=== PATIENT | male | born 1985 | race Caucasian/White ===

== ENCOUNTER 2018-08-19 21:10 | Emergency (ER) | payer OTHER ==
[~2018-08-19] VITALS: Ht 172.7 cm; Wt 83.9 kg
[~2018-08-19 21:10] MED LIST: ACET325 PO; BACI500TO BOTHEYES; CEPH500 PO; Colace100 MG PO; FAMO20 PO; FENT100TP TOP; FERSU90EL PO; Hydrochlorothia25 MG PO; MELA3 PO; MEROPENEM1000 MG IV; OXYC5 PO; RXHYDACE PO; SULTRIDS PO; TAMS.4ER PO
[2018-08-19] MEDS ORDERED: Cleocin HCl150 MG PO (22:08)
== END 2018-08-19 22:21 | disposition home or self-care (01) ==
LOC: ER 21:10
DX: H60.02 Abscess of left external ear (principal); Z88.0 Allergy status to penicillin; Z88.6 Allergy status to analgesic agent; Z79.899 Other long term (current) drug therapy; Z79.891 Long term (current) use of opiate analgesic
CPT/HCPCS: 99283